=== PATIENT | male | born 1945 | race Caucasian/White ===

== ENCOUNTER 2022-11-03 10:05 | Emergency (ER) | payer MEDICARE, BC | END 2022-11-03 11:18 | disposition home or self-care (01) | LOC: CSHERS 10:05 | DX: U07.1 COVID-19 (principal); E11.9 Type 2 diabetes mellitus without complications; E78.00 Pure hypercholesterolemia, unspecified; Z79.899 Other long term (current) drug therapy; Z79.84 Long term (current) use of oral hypoglycemic drugs; Z79.82 Long term (current) use of aspirin | CPT/HCPCS: 71045 ==